=== PATIENT | female | born 1930 | race Caucasian/White ===

== ENCOUNTER 2017-06-27 08:09 | Day surgery (SDC) | payer OTHER ==
[~2017-06-27 08:09] MED LIST: CEFAZOLIN 1000MG IV PUSH 5 ML IV SCH; LACTATED RINGER'S 1000ML IV SCH
--- NOTE | 2017-06-27 08:22 | History & Physical Bridge Note ---
H&P Re-Evaluation Bridge Note: I have examined the patient, reviewed the History & Physical and in the interval since the performance of the History & Physical I have noted the following changes of clinical significance: No changes noted
--- NOTE | 2017-06-27 08:22 | Procedure Note ---
Pre-Mod Sedation Assessment General Date of Moderate Sedation: Jun 27, 2017. Review Cardiovascular: regular rate, rhythm Abdomen: soft Lungs: lungs clear Airway Class: II Pre-Sedation Airway Assessment Oral Cavity: WNL Short Thick Neck: No Hx of Sleep Apnea: No Smoking Status: Former Smoker Mallampati Classification: Class II ASA Classification: Class II Procedure Planning Contraindications-for Mod Sed: None Yes Notes The planned sedation has been discussed with the patient and consent obtained. I have identified the patient, determined the appropriateness of sedation and have assessed the patient immediately prior to the procedure. All medicine(s) and interventions are by my order.
[2017-06-27] MEDS ORDERED: NURSING VERBAL MED ORDER ONE (09:15)
[2017-06-27 09:28] VITALS: BP 109/61; PULSE 62; TEMP 36.5; O2SAT 97
[2017-06-27] MEDS ORDERED: FRS/40 PO (10:50)
[2017-06-27] MEDS ORDERED: CAND32TA2 PO (10:50)
[2017-06-27] MEDS ORDERED: MONT1TAB3 PO (10:50)
[2017-06-27] MEDS ORDERED: ATV/1 PO (10:50)
[2017-06-27] MEDS ORDERED: ARTIOIN OP (10:50)
[2017-06-27] MEDS ORDERED: OLOP0.1S3 OP (10:50)
[2017-06-27] MEDS ORDERED: SIMV40TA2 PO (10:50)
[2017-06-27] MEDS ORDERED: ALBU1.257 NEB (10:50)
[2017-06-27] MEDS ORDERED: CALC500C70 PO (10:50)
[2017-06-27] MEDS ORDERED: NTRGSL/4 UT (10:50)
[2017-06-27] MEDS ORDERED: CARV6.252 PO (10:50)
[2017-06-27] MEDS ORDERED: SPIR25TA PO (10:50)
[2017-06-27] MEDS ORDERED: OMEG10007 PO (10:50)
[2017-06-27] MEDS ORDERED: VNTHFA/IN INH (10:50)
[2017-06-27] MEDS ORDERED: ASPI1CHW12 (10:50)
[2017-06-27] MEDS ORDERED: LEVO100T7 PO (10:50)
[2017-06-27] MEDS ORDERED: FLVHFA110 INH (10:50)
[2017-06-27] MEDS ORDERED: ATRIN INH (10:50)
[2017-06-27] MEDS ORDERED: LIDOCAINE HCL 1% 20 ML VIAL ONE (10:55)
[2017-06-27] MEDS ORDERED: BUPIVACAINE 0.5 % 5 MG/1 ML MPF 30ML VIAL ONE (10:55)
[2017-06-27] MEDS ORDERED: BACITRACIN 50000 UNIT VIAL ONE (10:56)
[2017-06-27] MEDS ORDERED: MIDAZOLAM HCL 1 MG/ML 2ML VIAL ONE (10:57)
[2017-06-27] MEDS ORDERED: FENTANYL CITRATE INJ 50 MCG/1 ML 2 ML VIAL ONE ×2 (10:57→12:07)
--- NOTE | 2017-06-27 11:35 | Procedure Note ---
Post-Mod Sedation Assessment General Date of Moderate Sedation Jun 27, 2017. Vital Signs: Vital Signs Past 12 Hours Date Time Temp Pulse Resp B/P (MAP) Pulse Ox O2 Delivery O2 Flow Rate FiO2 06/27/17 11:30 60 16 109/65 (80) 98 Room Air 06/27/17 09:28 36.5 62 18 109/61 (77) 97 Room Air Review - Discharge Criteria Vital Signs Stable: Yes Alert/Oriented/Conversant: Yes Returned to Baseline Mental St: Yes Nausea Absent/Minimal: Yes Pain/Discomfort/Absent/Minimal: Yes Normal/Baseline Respirations: Yes Active Bleeding?: No Pt Received D/C Instructions: N/A Prescriptions Given: None Specific Proced. D/C Criteria Distal Pulses Present (Cardiac: N/A Groin site assessed-Card Cath: N/A Voided Prior To Discharge: N/A Discharged Patients Adult Escort/Transportation: N/A
--- NOTE | 2017-06-27 11:36 | [facility] Post Operative Brief Note ---
Immediate Operative Summary Operative Date Jun 27, 2017. Pre-Operative Diagnosis icd at [facility], [facility] Post-Operative Diagnosis same Procedure(s) Performed single chamber rate responsive icd generator change Surgeon gila mcmahon Track Laborer Surgeon(s) none Estimated Blood Loss <5cc Findings see official report Fluids (cc crystalloids) 200cc Specimens none Drains none Anesthesia 2mg versed Complication(s) None Disposition asu
--- NOTE | 2017-06-27 11:38 | Discharge Instructions ---
Discharge Instructions Date of Service Jun 27, 2017. Visit Reason for Visit: Parox Ventri Tachycardia *Icd Change Discharge Discharge Diagnosis / Problem: icd at [facility], [facility] Discharge Goals Goal(s): Improve function Activity Recommendations Activity Limitations: as noted below Lifting Limitations: no more than 10 pounds (do not lift more than 10 pounds with the left arm for 2 weeks) Shower/Bathe: tomorrow Driving or Machine Use: resume 1 day after discharge Anesthesia . Post Anesthesia Instructions: If you have had General Anesthesia or IV Sedation: * Do not drive today. * Resume driving when surgeon permits. * Do not make important decisions or sign legal documents today. * Call surgeon for: 1. Temperature elevations greater than 101 degrees F. 2. Uncontrollable pain. 3. Excessive bleeding. 4. Persistent nausea and vomiting. 5. Medication intolerance (nausea, vomiting or rash). * For nausea and vomiting use only clear liquids such as: tea, soda, bouillon until nausea subsides, then gradually increase diet as tolerated. * If you have any concerns or questions, call your surgeon's office. If physician is unavailable and it is an emergency, call 911 or go to the nearest emergency room. . Instructions / Follow-Up Instructions / Follow-Up ACTIVITY RECOMMENDATIONS: * Do not lift more than 10 pounds with the left arm for 2 weeks SPECIAL CARE INSTRUCTIONS: * If bleeding occurs, apply direct pressure to area for 5 minutes. * Call your doctor if you have severe pain, fever, drainage or bleeding at site. * Keep dry for 24 hours. * Keep any scheduled doctor's appointment. * Implant Card - hand held device with website information given. SKIN IRRITATION: * You may experience some redness and/or swelling in the area where radiation was administered. If any skin irritation occurs, please contact your family physician. FOLLOW UP VISIT: Keep any scheduled doctor appointments. Diet Recommendations Recommended Home Diet: resume previous diet Procedures Procedures Performed: single chamber rate responsive icd generator change Pending Studies Studies pending at discharge: no Medical Emergencies . Who to Call and When: Medical Emergencies: If at any time you feel your situation is an emergency, please call 911 immediately. . Non-Emergent Contact Non-Emergency issues call your: Edge Sawyer . . "Provider Documentation" section prepared by Marleny Hartman. .
[2017-06-27 11:45] VITALS: BP 114/64; PULSE 72; TEMP 36.4; O2SAT 98
[2017-06-27] MEDS ORDERED: MIDAZOLAM HCL 5 MG/ML 1 ML VIAL ONE (12:07)
--- NOTE | 2017-06-27 14:37 | OPERATIVE REPORT ---
DATE OF OPERATION: 06/27/2017 PREOPERATIVE DIAGNOSES: Implantable cardiac defibrillator at elective replacement interval, ischemic cardiomyopathy. POSTOPERATIVE DIAGNOSES: Same. PROCEDURE: Single chamber rate responsive implantable cardiac defibrillator generator change. SURGEON: Dr. Marleny Hartman. PATTERNMAKER BENCH: None. ANESTHESIA: Monitored conscious sedation administered under my supervision by Arvind Madsen, start time 11:03, end time 11:30. A total of 2 mg of Versed. INTRAVENOUS FLUIDS: 200 mL BLOOD LOSS: Less than 5 mL. COMPLICATIONS: None. CONDITION: Stable. ANTIBIOTICS: Ancef 1 gram. FINDINGS: See below. DRAINS: None. URINE OUTPUT: Not applicable. SPECIMENS: None. INDICATIONS: This is an 86-year-old female with a past medical history for ischemic cardiomyopathy, ejection fraction 19%, coronary artery disease, status post ST elevation GA with a PCI to LAD, and cardiac arrest at that time, ICD initially implanted in 2010, hypertension, hyperlipidemia, chronic kidney disease stage III, hypothyroidism and chronic systolic heart failure, [place] Heart Association class 2. On her most recent ICD check, her device had hit TIAGO on 06/07/2017 and was recommended a generator change. CONSENT: Consent was obtained prior to the patient going into the electrophysiology lab. The patient was informed of risks, benefits, and alternatives to the procedure. Risks include but not limited to sudden cardiac , cardiac arrhythmias, cerebrovascular accident, myocardial infarction, bleeding and infection. The patient understood these risks and agreed to the procedure as planned. Informed consent was obtained. DESCRIPTION OF THE PROCEDURE: The patient was brought into the electrophysiology lab in a fasting state. She was connected to continuous foreign car mechanic. A timeout was performed to ensure patient's identity and procedure correctly. The patient was prepped and draped over the left infraclavicular space in a normal surgical standard fashion. Monitored conscious sedation was given throughout the procedure for patient's comfort level. [place] precautions were maintained throughout the procedure. A 10 mL of 1% lidocaine and bupivacaine mixture were given over the prior device generator. I did not use the prior surgical incision as the device had migrated down inferiorly too much. Blunt dissection was performed down to the prior defibrillator generator and then capsule was disrupted using iris scissors. The generator was disrupted from the capsule and removed from the body. The leads were checked intraoperatively, see below for results. The capsule was disrupted inferiorly and caudally to allow for new blood flow. The pocket was flushed with copious amounts of bacitracin saline wash and inspected for hemostasis. The new generator was then attached to the leads making sure that the pins were in appropriate position, passed the set screws and the set screws were all tightened. The new generator was then placed in the pocket, making sure that the leads were lying flat beneath the device. The incision was closed in 3-layer fashion using 2-0 Vicryl interrupted suture followed by 3-0 Vicryl interrupted suture followed by a 4-0 Monocryl running stitch and Dermabond was applied. EQUIPMENT: 1. Explanted generator has been [id number], model number [id number], serial number [id number]. Voltage 2.62. 2. Right ventricular lead model number 6935-65, serial number [id number], implanted on 12/14/2010. INTRAOPERATIVE TESTING: R-wave, 22 millivolts, impedance 439 ohms, threshold 0.8 volts at 1.7 milliamps. FINAL MEASUREMENTS THROUGH THE DEVICE: 1. R-wave, 20 millivolts, impedance 361 ohms, threshold 1 volt at 0.4 milliseconds. 2. The RV coil is 85 ohms. FINAL PARAMETERS: VVI 40 with the VT monitor zone at 133 beats per minute and a VF zone at 200 beats per minute, 18/24 detection intervals. RV amplitude 2 volts, pulse width 0.4 milliseconds, sensitivity 0.3 millivolts. IMPRESSION: Successful single chamber rate responsive implantable cardiac defibrillator generator change secondary to ischemic cardiomyopathy and device at elective replacement interval. PLAN: Monitor patient post-sedation. She can shower tomorrow. No heavy lifting with the left arm for 2 weeks. She can continue her home medications and follow up in our [facility] for device and wound check in 1 week. I attest to the content of the Intraoperative Record and any orders documented therein. Any exception s are noted below.
== END 2017-06-27 12:50 | disposition home or self-care (01) ==
LOC: C.ACU 08:09
PROVIDERS: ATTEND Internal Medicine
DX: Z45.02 Encounter for adjustment and management of automatic implantable cardiac defibrillator (principal); I25.5 Ischemic cardiomyopathy; I47.2 Ventricular tachycardia; I25.10 Atherosclerotic heart disease of native coronary artery without angina pectoris; I13.0 Hypertensive heart and chronic kidney disease with heart failure and stage 1 through stage 4 chronic kidney disease, or unspecified chronic kidney disease; I50.22 Chronic systolic (congestive) heart failure; N18.3 Chronic kidney disease, stage 3 (moderate); E78.5 Hyperlipidemia, unspecified; E03.9 Hypothyroidism, unspecified; J44.9 Chronic obstructive pulmonary disease, unspecified; M19.90 Unspecified osteoarthritis, unspecified site; Z82.49 Family history of ischemic heart disease and other diseases of the circulatory system; Z82.3 Family history of stroke